=== PATIENT | female | born 1935 | race Caucasian/White ===

== ENCOUNTER 2018-05-02 15:18 | Emergency (ER) | payer MEDICARE ==
[~2018-05-02] VITALS: Ht 162.6 cm; Wt 66.7 kg
[2018-05-02] MEDS ORDERED: Sodium Chloride 500ML 500 ML IV ONE (15:47)
--- NOTE | 2018-05-02 15:58 | Emergency Room Report ---
History of Present Illness General Chief Complaint: Stroke Symptoms Source: Family Member Present Illness HPI 83-year-old female presents ED for evaluation. Daughter at bedside states that patient had a headache yesterday and is more confused than usual today. Referred by Dr Roque. Patient moved here a few months ago and does not yet have a PMD. She states yesterday afternoon she had a very bad headache. 10 out of 10, throbbing, nonradiating. Patient took Tylenol 2 in the headache ultimately resolved. Daughter states that this morning patient did not wake up when she normally wakes up and looked very lethargic. Upon triage patient is awake alert oriented 3. States she feels fine. Denies any headache. Denies any weakness. Denies any fevers or chills. Denies chest pain or shortness of breath. No other aggravating relieving factors. Denies any other associated symptoms Allergies: Coded Allergies: No Known Allergies (Unverified , 05/02/18) Patient History Past Medical History: ulcer Past Surgical History: none Pertinent Family History: none Social History: Denies: smoking, alcohol use, drug use Now: No Immunizations: UTD Reviewed Nursing Documentation: PMH: Agreed; PSxH: Agreed Nursing Documentation-PMH Past Medical History: No History, Except For Hx Hypertension: Yes Hx COPD: Yes Hx Gastrointestinal Problems: Yes - ulcer Review of Systems All Other Systems: negative except mentioned in HPI Physical Exam Vital Signs Date Time Temp Pulse Resp B/P (MAP) Pulse Ox O2 Delivery O2 Flow Rate FiO2 05/02/18 15:27 97.8 71 18 120/66 93 Room Air 97.9 Sp02 EP Interpretation: reviewed, normal General Appearance: no apparent distress, alert, GCS 15, non-toxic Head: normocephalic, atraumatic Eyes: bilateral eye normal inspection, bilateral eye PERRL ENT: hearing grossly normal, normal pharynx, no angioedema, normal voice Neck: full range of motion, supple/symm/no masses Respiratory: chest non-tender, lungs clear, normal breath sounds, speaking full sentences Cardiovascular #1: regular rate, rhythm, no edema Cardiovascular #2: 2+ carotid (R), 2+ carotid (L), 2+ radial (R), 2+ radial (L) , 2+ dorsalis pedis (R), 2+ dorsalis pedis (L) Gastrointestinal: normal bowel sounds, non tender, soft, non-distended, no guarding, no rebound Rectal: deferred Genitourinary: normal inspection, no CVA tenderness Musculoskeletal: back normal, gait/station normal, normal range of motion, non- tender Neurologic: alert, oriented x3, responsive, motor strength/tone normal, sensory intact, speech normal Psychiatric: judgement/insight normal, memory normal, mood/affect normal, no suicidal/homicidal ideation Reflexes: 3+ bicep (R), 3+ bicep (L), 3+ tricep (R), 3+ tricep (L), 3+ knee (R) , 3+ knee (L) Skin: normal color, no rash, warm/dry, well hydrated Lymphatic: no adenopathy Medical Decision Making Diagnostic Impression: Primary Impression: Leukocytosis Qualified Codes: D72.829 - Elevated white blood cell count, unspecified Additional Impression: Headache Qualified Codes: R51 - Headache ER Course Hospital Course 83-year-old female presents to ED for headache yesterday. confused this morning. feeling fine now Differential diagnoses include: CVA, migraine, dehydraiton, UTI Clinical course Patient placed on stretcher. After initial history and physical I ordered labs , IV fluids, CT head, CXR Labs reviewed- electrolytes okay, significant leukocytosis, hb/hct stable, UA negative Chest x-ray shows questionable mediastinum mass CT head unremarkable Given the leukocytosis with widened mediastinal area I ordered a CT chest which was unremarkable EKG - NSR, no acute ischemic changes interpreted by me Discussed findings with patient and family. Isolated leukocytosis is not indication for admission given the patient is asymptomatic. Could possibly also be related to patient using inhaled steroids for her COPD. Spoke to PMD ; he agrees the patient can be discharged and he will see patient in his office in 2 days. Asked for blood cultures to be drawn i. I feel this is a highly complex case requiring extensive working including EKG/Rhythm strip, Xray/CT/US, Blood/urine lab work, repeat exams while in ED, and administration of strong opiates/narcotics for pain control, admission to hospital or close patient follow up. Diagnosis - headache, leukocytosis stable and discharged to home. f/up with PMD. return to ED if symptoms recur/ worsen. Labs Test 05/02/18 16:05/02/18 17:43 White Blood Count 36.1 K/UL (4.8-10.8) Red Blood Count 4.54 M/UL (4.20-5.40) Hemoglobin 12.4 G/DL (12.0-16.0) Hematocrit 37.4 % (37.0-47.0) Mean Corpuscular Volume 82 FL (80-99) Mean Corpuscular Hemoglobin 27.4 PG (27.0-31.0) Mean Corpuscular Hemoglobin Concent 33.2 G/DL (32.0-36.0) Red Cell Distribution Width 15.1 % (11.6-14.8) Platelet Count 393 K/UL (150-450) Mean Platelet Volume 5.6 FL (6.5-10.1) Neutrophils (%) (Auto) % (45.0-75.0) Lymphocytes (%) (Auto) % (20.0-45.0) Monocytes (%) (Auto) % (1.0-10.0) Eosinophils (%) (Auto) % (0.0-3.0) Basophils (%) (Auto) % (0.0-2.0) Differential Total Cells Counted 100 Neutrophils % (Manual) 85 % (45-75) Lymphocytes % (Manual) 8 % (20-45) Monocytes % (Manual) 4 % (1-10) Eosinophils % (Manual) 0 % (0-3) Basophils % (Manual) 1 % (0-2) Band Neutrophils 2 % (0-8) Platelet Estimate Adequate Platelet Morphology Normal Red Blood Cell Morphology Polychromasia 1+ Anisocytosis 1+ Sodium Level 135 MMOL/L (136-145) Potassium Level 3.8 MMOL/L (3.5-5.1) Chloride Level 100 MMOL/L (98-107) Carbon Dioxide Level 25 MMOL/L (21-32) Anion Gap 10 mmol/L (5-15) Blood Urea Nitrogen 19 mg/dL (7-18) Creatinine 0.9 MG/DL (0.55-1.30) Estimat Glomerular Filtration Rate mL/min (>60) Glucose Level 113 MG/DL (74-106) Calcium Level 8.7 MG/DL (8.5-10.1) Total Bilirubin 0.9 MG/DL (0.2-1.0) Aspartate Amino Transf (AST/SGOT) 29 U/L (15-37) Alanine Aminotransferase (ALT/SGPT) 32 U/L (12-78) Alkaline Phosphatase 121 U/L (46-116) Total Protein 7.1 G/DL (6.4-8.2) Albumin 3.3 G/DL (3.4-5.0) Globulin 3.8 g/dL Albumin/Globulin Ratio 0.9 (1.0-2.7) Vitamin B12 Level 1222 PG/ML (193-986) Thyroid Stimulating Hormone (TSH) 0.365 uiU/mL (0.358-3.740) Urine Color Pale yellow Urine Appearance Clear Urine pH 7 (4.5-8.0) Urine Specific [place] 1.005 (1.005-1.035) Urine Protein Negative (NEGATIVE) Urine Glucose (UA) Negative (NEGATIVE) Urine Ketones Negative (NEGATIVE) Urine Occult Blood Negative (NEGATIVE) Urine Nitrite Negative (NEGATIVE) Urine Bilirubin Negative (NEGATIVE) Urine Urobilinogen Normal MG/DL (0.0-1.0) Urine Leukocyte Esterase 2+ (NEGATIVE) Urine RBC 0-2 /HPF (0 - 2) Urine WBC 10-15 /HPF (0 - 2) Urine Squamous Epithelial Cells Occasional /LPF Urine Bacteria Few /HPF (NONE) EKG Diagnostic Results Rate: normal Rhythm: NSR ST Segments: no acute changes ASA given to the pt in ED: No Rhythm Strip Diag. Results EP Interpretation: yes Rhythm: NSR, no PVC's, no ectopy Chest X-Ray Diagnostic Results Chest X-Ray Diagnostic Results : Chest X-Ray Ordered: Yes # of Views/Limited/Complete: 1 View Indication: Other - ams EP Interpretation: Yes Interpretation: no pneumothorax, other - ? mediastinal mass Impression: Other - ? mediastinal mass Electronically Signed by: Electronically signed by Nilson Bryan MD CT/MRI/US Diagnostic Results CT/MRI/US Diagnostic Results #1: Imaging Test Ordered: CT Head Impression no acute process CT/MRI/US Diagnostic Results #2: Imaging Test Ordered: CT Chest Impression no acute process Last Vital Signs Date Time Temp Pulse Resp B/P (MAP) Pulse Ox O2 Delivery O2 Flow Rate FiO2 05/02/18 15:27 97.8 71 18 120/66 93 Room Air 97.9 Status: improved Disposition: HOME, SELF-CARE Condition: Stable Referrals: KEN ROQUE (PCP) Nilson Bryan MD May 02, 2018 15:58
[2018-05-02 16:27] VITALS: BP 118/49
--- NOTE | 2018-05-02 16:38 | Diagnostic Imaging Report ---
Indication: Headache Technique: spiral acquisitions obtained through the brain. Angled axial and coronal 5 x 5 mm slices were reconstructed. No IV contrast utilized. Radiation dose was minimized using automated exposure control Total dose length product 1371.08 mGycm. CTDIvol(s) 70.38 mGy Comparison: none FINDINGS: No acute hemorrhage or edema. No mass effect or midline shift. There is age-related enlargement of the ventricles and extra axial CSF spaces. There is periventricular deep white matter ischemic change. Normal suarez-white differentiation. Old lacunar infarcts are seen in the left basal ganglia Visualized orbits are unremarkable. There is complete opacification of the left maxillary sinus with some opacification of the nasal fossa is well. This also extends into the left ethmoid, sphenoid and left frontal sinuses.. Intact calvarium. There is bilateral minimal mastoid opacification as well. IMPRESSION: Chronic and age-related changes. Negative for acute intracranial bleed or mass effect Old left basal ganglia lacunar infarcts Extensive confluent sinus polyposis involving the left maxillary, ethmoid, sphenoid, and frontal sinuses as well as the left nasal fossa The CT scanner at [facility] is accredited by the [employer] and the scans are performed using protocols designed to limit radiation exposure to as low as reasonably achievable to attain images of sufficient resolution adequate for diagnostic evaluation
[2018-05-02 17:00] LABS: HEMATOCRIT 37.4 % (37.0-47.0); HEMOGLOBIN 12.4 G/DL (12.0-16.0); MEAN CORPUSCULAR VOLUME 82 FL (80-99); PLATELET COUNT 393 K/UL (150-450); RED BLOOD COUNT 4.54 M/UL (4.20-5.40); RED CELL DISTRIBUTION WIDTH 15.1 % (11.6-14.8)
[2018-05-02 17:01] LABS: ANION GAP 10 mmol/L (5-15); BLOOD UREA NITROGEN 19 mg/dL (7-18); CALCIUM 8.7 MG/DL (8.5-10.1); CARBON DIOXIDE 25 MMOL/L (21-32); CHLORIDE 100 MMOL/L (98-107); CREATININE 0.9 MG/DL (0.55-1.30); POTASSIUM 3.8 MMOL/L (3.5-5.1); SODIUM 135 MMOL/L (136-145)
[2018-05-02 17:02] LABS: WHITE BLOOD COUNT 36.1 K/UL (4.8-10.8)
--- NOTE | 2018-05-02 17:03 | Diagnostic Imaging Report ---
Indication: Chest pain Technique: One view of the chest Comparison: None Findings: The there is some calcification in the left upper lobe. Lungs and pleural spaces are otherwise clear. The heart is borderline enlarged. There is upper mediastinal prominence. The aorta is tortuous ectatic and calcified Impression: No acute process Prominent upper mediastinum, suspect artifactual but upper mediastinal mass or enlarged thyroid also possible. Consider CT for better characterization. This was discussed by phone with Dr. Bryan previously
[2018-05-02 17:13] LABS: ALANINE AMINOTRANSFERASE 32 U/L (12-78); ALBUMIN 3.3 G/DL (3.4-5.0); ALBUMIN/GLOBULIN RATIO 0.9 (1.0-2.7); ALKALINE PHOSPHATASE 121 U/L (46-116); ASPARTATE AMINO TRANSFERASE 29 U/L (15-37); BILIRUBIN,TOTAL 0.9 MG/DL (0.2-1.0)
[2018-05-02] MEDS ORDERED: Isovue-300 100ml vial INJ PRN (17:15)
[2018-05-02 18:08] LABS: APPEARANCE,URINE CLEAR; BILIRUBIN, URINE NEGATIVE (NEGATIVE); COLOR,URINE PALE YELLOW; GLUCOSE, URINE (UA) NEGATIVE (NEGATIVE); KETONES,URINE NEGATIVE (NEGATIVE); LEUKOCYTE ESTERASE ,URINE 2+ (NEGATIVE); NITRITE,URINE NEGATIVE (NEGATIVE); PH,URINE 7 (4.5-8.0); PROTEIN,URINE NEGATIVE (NEGATIVE); UROBILINOGEN,URINE NORMAL MG/DL (0.0-1.0)
[2018-05-02] MEDS ORDERED: ANORO ELLIPTA1 EACH (18:27)
[2018-05-02] MEDS ORDERED: FLONASE ALLERG9.9 ML NS (18:27)
[2018-05-02] MEDS ORDERED: ZYRTEC10 MG ORAL (18:27)
[2018-05-02] MEDS ORDERED: METHIMAZOLE5 MG PO (18:27)
[2018-05-02] MEDS ORDERED: DONEPEZIL HCL5 M2 ORAL (18:27)
[2018-05-02] MEDS ORDERED: NORVASC10 MG ORAL (18:27)
[2018-05-02 19:17] VITALS: BP 118/49
--- NOTE | 2018-05-03 08:35 | Diagnostic Imaging Report ---
Clinical Indication: Fever, leukocytosis, cough, abnormal upper mediastinum on recent chest radiograph Technique: IV administration nonionic contrast. Spiral acquisition obtained through the chest. Multiplanar reconstructions generated. Total dose length product 585.38 mGycm. CTDIvol(s) 17.98 mGy. Dose reduction achieved using automated exposure control Comparison: Reference made to a chest radiograph of earlier the same day Findings: Atelectasis and/or scarring is seen at both lung bases and in the medial right middle lobe. There is some thickening of the inferior major fissure on the left. The lungs are equivocally mildly hyperinflated. Some calcific scarring is seen in the mid left upper lobe. No infiltrates, effusions, congestion, masses, or nodules are demonstrated. The thyroid is massively enlarged, particularly the left lobe with a considerable substernal component. The thyroid is not completely included in the exam, but the left lobe measures at least 8.2 cm craniocaudad by 4.3 cm transverse. It displaces the trachea and esophagus to the right. The right lobe is mostly suprasternal, also enlarged but less so. No other mediastinal or hilar mass or adenopathy demonstrated. Normal heart size. There is minimal anterior wall pericardial thickening. No axillary or chest wall mass or adenopathy. The bones demonstrate thoracic kyphotic deformity without evidence of focal compression fracture. There are degenerative spondylosis changes. The included upper abdominal anatomy is remarkable for subcentimeter low-attenuation lesions within both kidneys Impression: No acute pulmonary process Markedly enlarged thyroid goiter with substernal extension of the left thyroid lobe, accounting for the upper mediastinal abnormality described on recent chest radiograph Equivocal mild hyperinflation, if real consistent with COPD Kyphosis and degenerative spondylosis incidentally noted Bilateral upper pole renal subcentimeter low-attenuation lesions, too small to characterize, most likely benign simple cysts. No further follow-up necessary This agrees with the preliminary interpretation provided overnight by [facility]erad[facility] service. The CT scanner at [facility] is accredited by the [employer] and the scans are performed using protocols designed to limit radiation exposure to as low as reasonably achievable to attain images of sufficient resolution adequate for diagnostic evaluation.
--- NOTE | 2018-05-05 19:46 | Cardiology Report ---
APPROVED REPORT EKG Measurement Heart [id number] Normal sinus rhythm Normal ECG
== END 2018-05-02 19:18 | disposition home or self-care (01) ==
LOC: EMR 15:54
DX: R51 Headache (principal); D72.829 Elevated white blood cell count, unspecified; M40.209 Unspecified kyphosis, site unspecified; M47.9 Spondylosis, unspecified; E04.9 Nontoxic goiter, unspecified
CPT/HCPCS: 36415; 70450; 71045; 71260; 80053; 81003; 82607; 84443; 85007; 85025; 87040; 87086; 87181; 93005; 99284; Q9967; 96360; 96374; 96375